=== PATIENT | male | born 1990 | race Caucasian/White ===

== ENCOUNTER → 2020-04-07 | Outpatient (CLI) | payer BC ==
--- NOTE | 2020-04-07 17:49 | P.STRESS ---
- Stress Test Note Stress Test Results/Findings: Exam Performed: stress echo exercise Exam Date: 04/07/20 Reason for Exam: CP Height: 5 ft 11 in Weight: 105 kg Protocol: STRESS ECHO Stage: 4 Duration of Exercise: 11:15 Resting Heart Rate: 69 Resting Blood Pressure: 139/91 Maximum Achieved Heart Rate: 181 Maximum Achieved Blood Pressure: 168/77 85% PMHR: 163 100% PMHR: 192 METS: 12.1 Technologist Comment: Stress Test Results/Findings: Patient underwent exercise stress echo with a Rangel protocol treadmill stress test. Patient exercised into Stage 4 for a total of 11 minutes 15 seconds reaching a total of 12.1 METS. Patient's maximum heart rate was 181 which represented 94 % age-predicted maximum heart rate. Stress EKG portion: At baseline patient's EKG showed normal sinus rhythm, right axis deviation, interventricular conduction delay with mild ST depressions in the inferior leads and nonspecific T-wave inversions V1 and V2. At peak exercise, EKG showed nonspecific accentuation of baseline abnormalities. Stress echo portion: 2-D echocardiogram was performed in the parasternal long, personal short, apical 2 and apical four-chamber views at rest, peak exercise and in recovery. At baseline, echocardiogram showed left ventricular ejection fraction 55 % without wall motion abnormalities. With peak exercise, echocardiogram shows improvement in left ventricular ejection fraction, increase contractility, decrease in left ventricular dimension without wall motion abnormalities consistent with a normal response to exercise. Conclusions: 1. Nondiagnostic EKG portion secondary to baseline abnormalities. 2. Normal echo response to exercise without evidence of inducible ischemia. 2. Excellent exercise capacity.
== END | disposition home or self-care (01) ==
LOC: RADNMMAIN 09:53
PROVIDERS: ATTEND Internal Medicine Geriatric Medicine
DX: R07.9 Chest pain, unspecified (principal)
CPT/HCPCS: 93351